=== PATIENT | male | born 2005 | race Caucasian/White ===

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

== ENCOUNTER 2025-01-29 21:20 | Emergency (ER) | payer OTHER ==
[~2025-01-29] VITALS: Ht 177.8 cm; Wt 97.1 kg
[2025-01-29 21:24] VITALS: BP 128/67; TEMP 98.1; O2SAT 98
== END 2025-01-30 00:08 | disposition left against medical advice (07) ==
LOC: M ED 21:20
DX: Z53.21 Procedure and treatment not carried out due to patient leaving prior to being seen by health care provider (principal)